=== PATIENT | female | born 1935 | race Two or more races ===

== ENCOUNTER 2020-03-24 12:48 | Emergency (ER) | payer OTHER ==
[~2020-03-24] VITALS: Ht 152.4 cm; Wt 81.6 kg
[~2020-03-24 12:48] MED LIST: EFFEXOR XR75 MG; PROTONIX40 MG; SYNTHROID88 MCG; VASOTEC2.5 MG
[2020-03-24] MEDS ORDERED: TRADJENTA5 MG (13:07)
== END 2020-03-24 15:12 | disposition home or self-care (01) ==
LOC: ER 12:48
DX: R42 Dizziness and giddiness (principal); Z03.818 Encounter for observation for suspected exposure to other biological agents ruled out

== ENCOUNTER 2020-07-23 11:23 | Outpatient (CLI) | payer OTHER ==
[~2020-07-23 11:23] MED LIST changes: +TRADJENTA5 MG
== END 2020-07-23 11:25 | disposition home or self-care (01) ==
LOC: NUCLEAR 11:23
PROVIDERS: ATTEND Internal Medicine Cardiovascular Disease
DX: R55 Syncope and collapse (principal)

== ENCOUNTER 2022-03-29 11:30 | Outpatient (CLI) | payer OTHER | END 2022-03-29 11:38 | disposition home or self-care (01) | LOC: SONOGRAMA 11:30 | PROVIDERS: ATTEND Specialist | DX: E04.2 Nontoxic multinodular goiter (principal) ==

== ENCOUNTER 2022-03-29 12:52 | Outpatient (CLI) | payer OTHER | END 2022-03-29 12:53 | disposition home or self-care (01) | LOC: NUCLEAR 12:52 | PROVIDERS: ATTEND Specialist | DX: M81.0 Age-related osteoporosis without current pathological fracture (principal) ==

== ENCOUNTER 2022-05-09 08:44 | Emergency (ER) | payer OTHER ==
[~2022-05-09] VITALS: Ht 165.1 cm; Wt 78.5 kg
[2022-05-09] MEDS ORDERED: CLONAZEPAM0.5 MG PO (09:02)
[2022-05-09] MEDS ORDERED: ZETIA10 MG PO (09:02)
[2022-05-09] MEDS ORDERED: VENLAFAXINE HC150 M1 PO (09:03)
== END 2022-05-09 12:13 | disposition home or self-care (01) ==
LOC: ER 08:44
DX: M54.2 Cervicalgia (principal); M54.89 Other dorsalgia; M51.36 Other intervertebral disc degeneration, lumbar region; E11.9 Type 2 diabetes mellitus without complications; I10 Essential (primary) hypertension; E03.9 Hypothyroidism, unspecified; Z88.6 Allergy status to analgesic agent

== ENCOUNTER 2022-08-20 14:17 | Emergency (ER) | payer OTHER ==
[~2022-08-20] VITALS: Ht 165.1 cm; Wt 77.1 kg
[~2022-08-20 14:17] MED LIST changes: +CLONAZEPAM0.5 MG PO; +VENLAFAXINE HC150 M1 PO; +ZETIA10 MG PO
== END 2022-08-20 20:57 | disposition home or self-care (01) ==
LOC: ER 14:17
DX: R50.9 Fever, unspecified (principal); Z20.822 Contact with and (suspected) exposure to COVID-19

== ENCOUNTER 2022-12-08 07:34 | Outpatient (CLI) | payer OTHER | END 2022-12-08 07:35 | disposition home or self-care (01) | LOC: NUCLEAR 07:34 | PROVIDERS: ATTEND Internal Medicine | DX: M45.8 Ankylosing spondylitis sacral and sacrococcygeal region (principal) | CPT/HCPCS: 78306; A9503 ==